=== PATIENT | female | born 1955 | race Caucasian/White ===

== ENCOUNTER 2022-06-15 19:21 | Inpatient (IN) | payer MEDICAID ==
[~2022-06-15] VITALS: Ht 154.9 cm; Wt 86.7 kg
[2022-06-15] MEDS ORDERED: METRONIDAZOLE 500 MG PREMIX 100 ML IV ONE (19:45)
[2022-06-15] MEDS ORDERED: CEFTRIAXONE 1 G PREMIX 50 ML IV ONE (19:45)
[2022-06-15] MEDS ORDERED: SODIUM CHLORIDE 0.9% 1000ML BAG (SEPSIS BOLUS) IV ONE (19:45)
[2022-06-15] MEDS ORDERED: IOHEXOL-350 100 ML BOTTLE ONE (20:10)
[2022-06-15 20:55] LABS: HEMATOCRIT. 46.9 % (36.0-48.0); HEMOGLOBIN. 15.5 g/dL (12.0-16.0); MEAN CORPUSCULAR HEMOGLOBIN 29.9 pg (28.0-32.0); MEAN CORPUSCULAR VOLUME 90.7 fL (81.0-99.0); MEAN PLATELET VOLUME 8.3 fl (7.4-10.4); PLATELET 267 x1000/uL (130-400); RED BLOOD CELL COUNT 5.17 mill/uL (4.2-5.4); RED CELL DISTRIBUTION WIDTH 13.8 % (11.6-14.6)
[2022-06-15 21:08] LABS: CHLORIDE 97 mEq/L (98-107)
[2022-06-15 21:29] LABS: PLATELET ESTIMATE NORMAL
[2022-06-15] MEDS ORDERED: ACETAMINOPHEN 650MG SUPP PR ONE (21:30)
[2022-06-15] MEDS ORDERED: MAGNESIUM 1 G PREMIX 100 ML IV ONE (22:15)
[2022-06-15] MEDS ORDERED: PIPERACILLIN/TAZ 3.375G PREMIX 50 ML IV ONE (22:15)
[2022-06-15] MEDS ORDERED: POTASSIUM CHLORIDE INJ 40 MEQ in DEXT 5% WATER 250 ML IV ONE ×4 (22:15)
[2022-06-15] MEDS ORDERED: KCL 20MEQ/100ML X 2 FOR TOTAL KCL 40MEQ/200ML IV SCH (22:30)
[2022-06-15 23:10] LABS: BG BASE EXCESS -5.9 mmol/L (-2.0-2.0); BG CARBOXYHEMOGLOBIN 0.5 % (0.5-1.5); BG DEOXYHEMOGLOBIN 2.2 % (0.0-5.0); BG FRACTION INSPIRED OXYGEN 80; BG HCO3 ACT 18.6 mmol/L (22.0-26.0); BG METHEMOGLOBIN 0.5 % (0.0-1.5); BG OXYGEN SATURATION 97.8 % (92.0-98.5); BG OXYHEMOGLOBIN 96.8 % (94.0-97.0); BG PCO2 33.6 mmHg (35.0-45.0); BG PO2 102.9 mmHg (75.0-100.0); BG TOTAL HEMOGLOBIN 14.7 g/dL (12.0-18.0); BG VENT MODE MASK - BIPAP
[2022-06-16] VITALS (22 sets, daily range): BP systolic 65–116; BP diastolic 29–73
[2022-06-16] MEDS ORDERED: KCL 20MEQ/100ML X 2 FOR TOTAL KCL 40MEQ/200ML IV SCH (03:00)
[2022-06-16] MEDS ORDERED: CAND1TAB14 MT (03:32)
[2022-06-16] MEDS ORDERED: MORPHINE SULFATE 2 MG/ML CPJ (NOT FOR IM USE) IV PRN (04:00)
[2022-06-16] MEDS ORDERED: ONDANSETRON HCL 4MG/2ML INJ IV PRN (04:00)
[2022-06-16] MEDS: DEXT 5%/0.45% NACL KCL 40MEQ/L 1,000 ML IV SCH ×2 (05:05→14:22)
[2022-06-16] MEDS: PIPERACILLIN/TAZOBACTAM 3.375 G in DEXTROSE 5% WATER 50 ML IV SCH ×3 (05:05→21:51)
[2022-06-16] MEDS ORDERED: IOHEXOL-350 100 ML BOTTLE ONE (05:39)
[2022-06-16] MEDS ORDERED: CLONIDINE 0.1MG TABLET PO PRN (07:30)
[2022-06-16] MEDS ORDERED: MAGNESIUM/ALUMINUM HYDROXIDE/SIMETHICONE 30ML UDC PO PRN (07:30)
[2022-06-16] MEDS ORDERED: DEXTROSE 50% WATER 50ML SYRINGE IV PRN ×2 (07:30)
[2022-06-16] MEDS ORDERED: PIPERACILLIN/TAZOBACTAM 3.375 G in DEXTROSE 5% WATER 50 ML IV SCH (07:30)
[2022-06-16] MEDS: INSULIN LISPRO 100 UNITS/ML SUBCUT SCH ×4 (08:03→21:00)
[2022-06-16] MEDS: BLOOD SUGAR DIAGNOSTIC STRIP TEST SCH ×4 (08:04→21:00)
[2022-06-16] MEDS ORDERED: NALOXONE HCL 0.4MG/ML VIAL IV PRN (08:15)
[2022-06-16 08:21] LABS: BG BASE EXCESS -10.8 mmol/L (-2.0-2.0); BG CARBOXYHEMOGLOBIN 0.3 % (0.5-1.5); BG DEOXYHEMOGLOBIN 3.2 % (0.0-5.0); BG HCO3 ACT 12.3 mmol/L (22.0-26.0); BG METHEMOGLOBIN 0.1 % (0.0-1.5); BG OXYGEN SATURATION 96.8 % (92.0-98.5); BG OXYHEMOGLOBIN 96.4 % (94.0-97.0); BG PCO2 22.5 mmHg (35.0-45.0); BG PH 7.356 (7.350-7.450); BG PO2 90.4 mmHg (75.0-100.0); BG SAMPLE SITE LEFT RADIAL; BG TOTAL HEMOGLOBIN 15.7 g/dL (12.0-18.0); BG VENT MODE MASK - BIPAP
[2022-06-16] MEDS ORDERED: ENOXAPARIN 40MG/0.4ML SYR SUBCUT SCH (09:00)
[2022-06-16] MEDS ORDERED: SODIUM BICARBONATE 8.4% 1 MEQ/ML 50ML SYR IV NR (09:30)
[2022-06-16] MEDS ORDERED: SODIUM CHL 0.9% + KCL 20MEQ/L 1,000 ML IV SCH (09:30)
[2022-06-16] MEDS ORDERED: KCL 20MEQ/100ML PREMIX 100 ML IV SCH (09:45)
[2022-06-16 09:52] LABS: CHLORIDE 109 mEq/L (98-107)
[2022-06-16 09:57] LABS: HEMATOCRIT. 44.7 % (36.0-48.0); HEMOGLOBIN. 14.9 g/dL (12.0-16.0); MEAN CORPUSCULAR HEMOGLOBIN 30.2 pg (28.0-32.0); MEAN CORPUSCULAR VOLUME 90.9 fL (81.0-99.0); MEAN PLATELET VOLUME 8.8 fl (7.4-10.4); PLATELET 176 x1000/uL (130-400); RED BLOOD CELL COUNT 4.92 mill/uL (4.2-5.4); RED CELL DISTRIBUTION WIDTH 14.3 % (11.6-14.6)
[2022-06-16] MEDS ORDERED: VANCOMYCIN 1500MG in DEXTROSE 5% WATER 250ML IV NR (10:00)
[2022-06-16] MEDS ORDERED: SODIUM BICARBONATE 100 MEQ in SODIUM CHLORIDE 0.45% 1,000 ML IV SCH ×2 (10:30→21:00)
[2022-06-16 12:19] LABS: PLATELET ESTIMATE NORMAL
[2022-06-16] MEDS ORDERED: IPRATROPIUM/ALBUTEROL 0.5-3(2.5)MG/3ML NEB HHN PRN (13:15)
[2022-06-16] MEDS ORDERED: LIDOCAINE HCL/PF 1% 2ML VIAL ONE (13:30)
[2022-06-16 13:38] LABS: BG BASE EXCESS -7.8 mmol/L (-2.0-2.0); BG CARBOXYHEMOGLOBIN 0.2 % (0.5-1.5); BG DEOXYHEMOGLOBIN 8.2 % (0.0-5.0); BG HCO3 ACT 17.5 mmol/L (22.0-26.0); BG METHEMOGLOBIN 0.3 % (0.0-1.5); BG OXYGEN SATURATION 91.8 % (92.0-98.5); BG OXYHEMOGLOBIN 91.3 % (94.0-97.0); BG PCO2 35.6 mmHg (35.0-45.0); BG PO2 64.8 mmHg (75.0-100.0); BG SAMPLE SITE RIGHT RADIAL; BG TOTAL HEMOGLOBIN 15.5 g/dL (12.0-18.0); BG VENT MODE MASK - SIMPLE
[2022-06-16] MEDS ORDERED: LORAZEPAM 0.5MG TABLET PO PRN ×2 (13:45→15:30)
[2022-06-16] MEDS: MIDODRINE HCL 5MG TABLET PO SCH ×2 (14:22→16:21)
[2022-06-16] MEDS ORDERED: NOREPINEPHRINE 32 MG in DEXT 5% WATER 218 ML IV PRN (16:30)
[2022-06-16 16:52] LABS: AMYLASE 1498 IU/L (25-115)
[2022-06-16] MEDS: IPRATROPIUM/ALBUTEROL 0.5-3(2.5)MG/3ML NEB HHN SCH (20:20)
[2022-06-16] MEDS ORDERED: SODIUM CHLORIDE IV SCH ×3 (21:15)
[2022-06-16] MEDS ORDERED: SODIUM BICARBONATE IV SCH ×4 (21:15→22:00)
[2022-06-16] MEDS ORDERED: DEXTROSE 5% IV SCH ×3 (21:15)
[2022-06-16] MEDS ORDERED: WATER IV SCH ×3 (21:15)
[2022-06-16] MEDS ORDERED: POTASSIUM CHLORIDE IV SCH (22:00)
[2022-06-16] MEDS ORDERED: [UNRECOGNIZED DRUG - OTHER] IV SCH (22:00)
[2022-06-17] VITALS (70 sets, daily range): BP systolic 70–171; BP diastolic 46–104
[2022-06-17] MEDS: IPRATROPIUM/ALBUTEROL 0.5-3(2.5)MG/3ML NEB HHN SCH ×4 (00:53→21:10)
[2022-06-17] MEDS: PIPERACILLIN/TAZOBACTAM 3.375 G in DEXTROSE 5% WATER 50 ML IV SCH ×3 (05:31→22:03)
[2022-06-17 06:39] LABS: HEMATOCRIT. 41.5 % (36.0-48.0); HEMOGLOBIN. 13.7 g/dL (12.0-16.0); MEAN CORPUSCULAR HEMOGLOBIN 29.8 pg (28.0-32.0); MEAN CORPUSCULAR VOLUME 90.4 fL (81.0-99.0); PLATELET 153 x1000/uL (130-400); RED BLOOD CELL COUNT 4.59 mill/uL (4.2-5.4); RED CELL DISTRIBUTION WIDTH 14.8 % (11.6-14.6)
[2022-06-17] MEDS: BLOOD SUGAR DIAGNOSTIC STRIP TEST SCH ×4 (07:06→21:00)
[2022-06-17] MEDS: INSULIN LISPRO 100 UNITS/ML SUBCUT SCH ×5 (07:20→22:18)
[2022-06-17 07:22] LABS: PHOSPHORUS 4.3 mg/dL (2.5-4.9); T4 FREE 1.03 ng/dL (0.76-1.46)
[2022-06-17] MEDS: HYDROCODONE/ACETAMINOPHEN 5/325MG TABLET PO PRN (08:01)
[2022-06-17] MEDS ORDERED: DILTIAZEM HCL 5MG/ML 5ML VIAL IV PRN (08:15)
[2022-06-17] MEDS ORDERED: LIDOCAINE HCL/PF 1% 10 MG/ML 5ML VIAL ONE (08:28)
[2022-06-17] MEDS: MIDODRINE HCL 5MG TABLET PO SCH ×3 (08:38→17:20)
[2022-06-17 09:16] LABS: BG BASE EXCESS -4.2 mmol/L (-2.0-2.0); BG CARBOXYHEMOGLOBIN 0.5 % (0.5-1.5); BG DEOXYHEMOGLOBIN 6.2 % (0.0-5.0); BG FRACTION INSPIRED OXYGEN 60; BG HCO3 ACT 19.3 mmol/L (22.0-26.0); BG METHEMOGLOBIN 0.4 % (0.0-1.5); BG OXYGEN SATURATION 93.7 % (92.0-98.5); BG OXYHEMOGLOBIN 92.9 % (94.0-97.0); BG PCO2 31.1 mmHg (35.0-45.0); BG PO2 66.1 mmHg (75.0-100.0); BG SAMPLE SITE RIGHT BRACHIAL; BG TOTAL HEMOGLOBIN 14.3 g/dL (12.0-18.0); BG VENT MODE MASK - SIMPLE
[2022-06-17] MEDS: ENOXAPARIN 30MG/0.3ML SYR SUBCUT SCH (09:40)
[2022-06-17] MEDS ORDERED: FUROSEMIDE 100MG/10ML VIAL IVP NR (11:30)
[2022-06-17] MEDS ORDERED: VANCOMYCIN 750MG PREMIX 150 ML IV SCH ×2 (12:00)
[2022-06-17] MEDS ORDERED: AMIODARONE HCL 150 MG in DEXT 5% WATER 97 ML IV SCH (13:00)
[2022-06-17] MEDS: AMIODARONE HCL 900 MG in DEXT 5% WATER 482 ML IV PRN (13:30)
[2022-06-17] MEDS: SODIUM BICARBONATE 150 MEQ in DEXTROSE 5% WATER 1,000 ML IV SCH (13:37)
[2022-06-17] MEDS ORDERED: VANCOMYCIN 500MG PREMIX 100 ML IV NR (21:00)
[2022-06-17 21:26] LABS: PLATELET ESTIMATE NORMAL
[2022-06-18] VITALS (80 sets, daily range): BP systolic 97–173; BP diastolic 44–124
[2022-06-18] MEDS: IPRATROPIUM/ALBUTEROL 0.5-3(2.5)MG/3ML NEB HHN SCH ×4 (01:00→20:29)
[2022-06-18 05:34] LABS: HEMATOCRIT. 37.8 % (36.0-48.0); HEMOGLOBIN. 12.7 g/dL (12.0-16.0); MEAN CORPUSCULAR HEMOGLOBIN 29.9 pg (28.0-32.0); MEAN CORPUSCULAR VOLUME 89.1 fL (81.0-99.0); MEAN PLATELET VOLUME 9.1 fl (7.4-10.4); PLATELET 133 x1000/uL (130-400); RED BLOOD CELL COUNT 4.24 mill/uL (4.2-5.4); RED CELL DISTRIBUTION WIDTH 14.7 % (11.6-14.6)
[2022-06-18] MEDS: PIPERACILLIN/TAZOBACTAM 3.375 G in DEXTROSE 5% WATER 50 ML IV SCH ×2 (06:40→21:11)
[2022-06-18] MEDS: INSULIN LISPRO 100 UNITS/ML SUBCUT SCH ×3 (06:43→18:00)
[2022-06-18] MEDS: BLOOD SUGAR DIAGNOSTIC STRIP TEST SCH ×3 (06:44→17:59)
[2022-06-18] MEDS: ENOXAPARIN 30MG/0.3ML SYR SUBCUT SCH (08:41)
[2022-06-18 09:14] LABS: PLATELET ESTIMATE NORMAL
[2022-06-18] MEDS: MIDODRINE HCL 5MG TABLET PO SCH (10:04)
[2022-06-18] MEDS: KCL 10MEQ/50ML PREMIX 50 ML IV SCH ×3 (10:04→12:41)
[2022-06-18] MEDS: AMIODARONE HCL 900 MG in DEXT 5% WATER 482 ML IV PRN (13:18)
[2022-06-18] MEDS ORDERED: DILTIAZEM HCL 125 MG in DEXT 5% WATER 100 ML IV PRN (13:30)
[2022-06-18] MEDS: SODIUM BICARBONATE 150 MEQ in DEXTROSE 5% WATER 1,000 ML IV SCH (21:10)
[2022-06-18] MEDS: HYDROCODONE/ACETAMINOPHEN 5/325MG TABLET PO PRN (22:24)
[2022-06-18] MEDS ORDERED: BLOOD SUGAR DIAGNOSTIC STRIP TEST SCH (22:45)
[2022-06-18] MEDS ORDERED: INSULIN LISPRO 100 UNITS/ML SUBCUT SCH (22:45)
[2022-06-19] VITALS (36 sets, daily range): BP systolic 131–185; BP diastolic 55–114
[2022-06-19] MEDS: IPRATROPIUM/ALBUTEROL 0.5-3(2.5)MG/3ML NEB HHN SCH ×4 (02:14→21:10)
[2022-06-19 06:03] LABS: PROTHROMBIN TIME 10.9 sec (9.6-11.0)
[2022-06-19 06:24] LABS: PHOSPHORUS 3.1 mg/dL (2.5-4.9)
[2022-06-19] MEDS: BLOOD SUGAR DIAGNOSTIC STRIP TEST SCH ×4 (07:50→21:29)
[2022-06-19 08:36] LABS: BG BASE EXCESS 5.4 mmol/L (-2.0-2.0); BG CARBOXYHEMOGLOBIN 0.3 % (0.5-1.5); BG DEOXYHEMOGLOBIN 6.5 % (0.0-5.0); BG FRACTION INSPIRED OXYGEN 44; BG HCO3 ACT 28.8 mmol/L (22.0-26.0); BG METHEMOGLOBIN 0.4 % (0.0-1.5); BG OXYGEN SATURATION 93.5 % (92.0-98.5); BG OXYHEMOGLOBIN 92.8 % (94.0-97.0); BG PCO2 38.1 mmHg (35.0-45.0); BG PH 7.497 (7.350-7.450); BG PO2 63.7 mmHg (75.0-100.0); BG SAMPLE SITE LEFT RADIAL; BG TOTAL HEMOGLOBIN 12.2 g/dL (12.0-18.0); BG VENT MODE NASAL CANNULA
[2022-06-19] MEDS ORDERED: POTASSIUM CHLORIDE INJ 60 MEQ in DEXT 5% WATER 250 ML IV ONE (08:45)
[2022-06-19] MEDS: PIPERACILLIN/TAZOBACTAM 3.375 G in DEXTROSE 5% WATER 50 ML IV SCH ×2 (09:00→22:32)
[2022-06-19] MEDS: KCL 20MEQ/100ML PREMIX 100 ML IV NR ×3 (09:58→13:00)
[2022-06-19] MEDS: ENOXAPARIN 30MG/0.3ML SYR SUBCUT SCH (09:58)
[2022-06-19] MEDS: INSULIN LISPRO 100 UNITS/ML SUBCUT SCH ×4 (09:59→21:24)
[2022-06-19 11:03] LABS: HEMATOCRIT. 35.3 % (36.0-48.0); HEMOGLOBIN. 11.8 g/dL (12.0-16.0); MEAN CORPUSCULAR HEMOGLOBIN 29.7 pg (28.0-32.0); MEAN CORPUSCULAR VOLUME 88.9 fL (81.0-99.0); MEAN PLATELET VOLUME 10.4 fl (7.4-10.4); PLATELET 147 x1000/uL (130-400); RED BLOOD CELL COUNT 3.97 mill/uL (4.2-5.4); RED CELL DISTRIBUTION WIDTH 14.9 % (11.6-14.6)
[2022-06-19] MEDS ORDERED: DILTIAZEM HCL 30MG TABLET PO SCH (12:00)
[2022-06-19 12:13] LABS: PLATELET ESTIMATE NORMAL
[2022-06-19] MEDS: DILTIAZEM HCL 60MG TABLET PO SCH ×2 (14:00→21:23)
[2022-06-19] MEDS ORDERED: DILTIAZEM HCL 60MG TABLET PO SCH (18:00)
[2022-06-19] MEDS: CARVEDILOL 3.125 MG TABLET PO SCH (21:23)
[2022-06-19] MEDS: AMIODARONE HCL 200 MG TABLET PO SCH (21:24)
[2022-06-20] VITALS (12 sets, daily range): BP systolic 97–160; BP diastolic 54–80
[2022-06-20] MEDS: IPRATROPIUM/ALBUTEROL 0.5-3(2.5)MG/3ML NEB HHN SCH ×4 (01:06→21:12)
[2022-06-20] MEDS: DILTIAZEM HCL 60MG TABLET PO SCH ×3 (05:43→21:03)
[2022-06-20 06:44] LABS: HEMATOCRIT. 36.7 % (36.0-48.0); HEMOGLOBIN. 12.1 g/dL (12.0-16.0); MEAN CORPUSCULAR VOLUME 90.9 fL (81.0-99.0); MEAN PLATELET VOLUME 9.8 fl (7.4-10.4); PLATELET 181 x1000/uL (130-400); RED BLOOD CELL COUNT 4.04 mill/uL (4.2-5.4)
[2022-06-20 06:50] LABS: PHOSPHORUS 3.3 mg/dL (2.5-4.9)
[2022-06-20] MEDS: INSULIN LISPRO 100 UNITS/ML SUBCUT SCH ×5 (08:00→20:56)
[2022-06-20] MEDS: BLOOD SUGAR DIAGNOSTIC STRIP TEST SCH ×4 (08:17→20:21)
[2022-06-20] MEDS ORDERED: POTASSIUM CHLORIDE 20MEQ TABLET SR PO SCH (09:00)
[2022-06-20] MEDS ORDERED: VANCOMYCIN 750MG PREMIX 150 ML IV NR (10:00)
[2022-06-20] MEDS: AMIODARONE HCL 200 MG TABLET PO SCH ×2 (10:35→20:53)
[2022-06-20] MEDS: ENOXAPARIN 30MG/0.3ML SYR SUBCUT SCH (10:36)
[2022-06-20] MEDS: CARVEDILOL 3.125 MG TABLET PO SCH ×2 (10:37→21:00)
[2022-06-20] MEDS: PIPERACILLIN/TAZOBACTAM 3.375 G in DEXTROSE 5% WATER 50 ML IV SCH ×2 (10:37→20:53)
[2022-06-20 12:26] LABS: CLARITY URINE TURBID (CLEAR); COLOR URINE ORANGE (YELLOW); KETONES URINE NEGATIVE (NEGATIVE); LEUKOCYTE ESTERASE URINE 1+ (NEGATIVE); NITRITE URINE NEGATIVE (NEGATIVE); OCCULT BLOOD URINE 3+ (NEGATIVE); PROTEIN URINE 2+ (NEGATIVE); SPECIFIC GRAVITY URINE 1.019 (1.005-1.030); UROBILINOGEN URINE 0.2 E.U./dL (0.2-1.0)
[2022-06-20] MEDS ORDERED: LIDOCAINE HCL/PF 1% 2ML VIAL ONE (13:11)
[2022-06-20 14:18] LABS: BG BASE EXCESS 3.6 mmol/L (-2.0-2.0); BG CARBOXYHEMOGLOBIN 0.3 % (0.5-1.5); BG DEOXYHEMOGLOBIN 11.6 % (0.0-5.0); BG HCO3 ACT 26.8 mmol/L (22.0-26.0); BG METHEMOGLOBIN 0.3 % (0.0-1.5); BG OXYGEN SATURATION 88.3 % (92.0-98.5); BG OXYHEMOGLOBIN 87.8 % (94.0-97.0); BG PCO2 35.9 mmHg (35.0-45.0); BG PH 7.491 (7.350-7.450); BG PO2 51.4 mmHg (75.0-100.0); BG SAMPLE SITE RIGHT RADIAL; BG TOTAL HEMOGLOBIN 12.8 g/dL (12.0-18.0); BG VENT MODE NASAL CANNULA
[2022-06-20 21:36] LABS: PLATELET ESTIMATE NORMAL
[2022-06-21] VITALS (12 sets, daily range): BP systolic 98–125; BP diastolic 41–106
[2022-06-21] MEDS: IPRATROPIUM/ALBUTEROL 0.5-3(2.5)MG/3ML NEB HHN SCH ×4 (01:04→20:27)
[2022-06-21] MEDS: DILTIAZEM HCL 60MG TABLET PO SCH ×3 (06:00→21:10)
[2022-06-21 06:21] LABS: HEMATOCRIT. 36.5 % (36.0-48.0); HEMOGLOBIN. 12.4 g/dL (12.0-16.0); MEAN CORPUSCULAR HEMOGLOBIN 30.6 pg (28.0-32.0); MEAN PLATELET VOLUME 9.7 fl (7.4-10.4); PLATELET 263 x1000/uL (130-400); RED BLOOD CELL COUNT 4.05 mill/uL (4.2-5.4); RED CELL DISTRIBUTION WIDTH 14.4 % (11.6-14.6)
[2022-06-21 06:54] LABS: PHOSPHORUS 3.7 mg/dL (2.5-4.9)
[2022-06-21] MEDS: INSULIN LISPRO 100 UNITS/ML SUBCUT SCH ×4 (08:00→21:00)
[2022-06-21] MEDS: BLOOD SUGAR DIAGNOSTIC STRIP TEST SCH ×4 (08:14→21:11)
[2022-06-21] MEDS: CARVEDILOL 3.125 MG TABLET PO SCH ×2 (08:15→21:11)
[2022-06-21] MEDS: PIPERACILLIN/TAZOBACTAM 3.375 G in DEXTROSE 5% WATER 50 ML IV SCH ×3 (08:55→21:10)
[2022-06-21] MEDS: ENOXAPARIN 30MG/0.3ML SYR SUBCUT SCH (08:55)
[2022-06-21] MEDS: AMIODARONE HCL 200 MG TABLET PO SCH ×2 (08:55→21:11)
[2022-06-21 20:37] LABS: PLATELET ESTIMATE NORMAL
[2022-06-22] VITALS (12 sets, daily range): BP systolic 91–111; BP diastolic 54–68
[2022-06-22] MEDS: IPRATROPIUM/ALBUTEROL 0.5-3(2.5)MG/3ML NEB HHN SCH ×4 (01:07→20:17)
[2022-06-22] MEDS: ENOXAPARIN 30MG/0.3ML SYR SUBCUT SCH (09:00)
[2022-06-22] MEDS: PIPERACILLIN/TAZOBACTAM 3.375 G in DEXTROSE 5% WATER 50 ML IV SCH ×2 (09:00→20:08)
[2022-06-22] MEDS: AMIODARONE HCL 200 MG TABLET PO SCH ×2 (09:00→20:08)
[2022-06-22] MEDS: CARVEDILOL 3.125 MG TABLET PO SCH ×2 (09:00→20:08)
[2022-06-22 12:09] LABS: HEMATOCRIT. 37.9 % (36.0-48.0); HEMOGLOBIN. 12.8 g/dL (12.0-16.0); MEAN CORPUSCULAR HEMOGLOBIN 30.2 pg (28.0-32.0); MEAN CORPUSCULAR VOLUME 89.4 fL (81.0-99.0); MEAN PLATELET VOLUME 9.8 fl (7.4-10.4); PLATELET 347 x1000/uL (130-400); RED BLOOD CELL COUNT 4.24 mill/uL (4.2-5.4); RED CELL DISTRIBUTION WIDTH 14.5 % (11.6-14.6)
[2022-06-22] MEDS: BLOOD SUGAR DIAGNOSTIC STRIP TEST SCH ×3 (12:33→20:08)
[2022-06-22] MEDS: INSULIN LISPRO 100 UNITS/ML SUBCUT SCH ×3 (13:00→20:09)
[2022-06-22] MEDS: DILTIAZEM HCL 60MG TABLET PO SCH ×2 (14:00→20:09)
[2022-06-22 17:41] LABS: PLATELET ESTIMATE NORMAL
[2022-06-22 19:29] LABS: CREATINE KINASE 101 IU/L (26-192)
[2022-06-23] VITALS (18 sets, daily range): BP systolic 83–113; BP diastolic 51–66
[2022-06-23] MEDS: IPRATROPIUM/ALBUTEROL 0.5-3(2.5)MG/3ML NEB HHN SCH ×4 (01:50→20:19)
[2022-06-23] MEDS: DILTIAZEM HCL 60MG TABLET PO SCH ×3 (05:21→21:57)
[2022-06-23 06:12] LABS: HEMATOCRIT. 35.3 % (36.0-48.0); MEAN CORPUSCULAR HEMOGLOBIN 30.1 pg (28.0-32.0); PLATELET 377 x1000/uL (130-400); RED BLOOD CELL COUNT 3.97 mill/uL (4.2-5.4); RED CELL DISTRIBUTION WIDTH 14.6 % (11.6-14.6)
[2022-06-23] MEDS: INSULIN LISPRO 100 UNITS/ML SUBCUT SCH ×4 (08:00→21:00)
[2022-06-23] MEDS: BLOOD SUGAR DIAGNOSTIC STRIP TEST SCH ×4 (08:00→21:38)
[2022-06-23] MEDS ORDERED: POTASSIUM CHLORIDE 20MEQ/PACKET PO NR (08:15)
[2022-06-23] MEDS ORDERED: SODIUM CHLORIDE 0.9% 1000ML BAG (SEPSIS BOLUS) IV ONE (08:15)
[2022-06-23] MEDS: CARVEDILOL 3.125 MG TABLET PO SCH (08:25)
[2022-06-23] MEDS: PIPERACILLIN/TAZOBACTAM 3.375 G in DEXTROSE 5% WATER 50 ML IV SCH ×2 (08:33→21:38)
[2022-06-23] MEDS: ENOXAPARIN 30MG/0.3ML SYR SUBCUT SCH (08:33)
[2022-06-23] MEDS: AMIODARONE HCL 200 MG TABLET PO SCH ×2 (08:33→21:38)
[2022-06-23] MEDS ORDERED: LIDOCAINE HCL/PF 1% 2ML VIAL ONE (09:04)
[2022-06-23 10:20] LABS: BG BASE EXCESS 0.7 mmol/L (-2.0-2.0); BG CARBOXYHEMOGLOBIN 0.2 % (0.5-1.5); BG DEOXYHEMOGLOBIN 9.1 % (0.0-5.0); BG FRACTION INSPIRED OXYGEN 21; BG METHEMOGLOBIN 0.3 % (0.0-1.5); BG OXYGEN SATURATION 90.9 % (92.0-98.5); BG OXYHEMOGLOBIN 90.4 % (94.0-97.0); BG PCO2 30.1 mmHg (35.0-45.0); BG PH 7.501 (7.350-7.450); BG PO2 56.9 mmHg (75.0-100.0); BG SAMPLE SITE RIGHT RADIAL; BG TOTAL HEMOGLOBIN 12.6 g/dL (12.0-18.0); BG VENT MODE ROOM AIR
[2022-06-23] MEDS: MIDODRINE HCL 5MG TABLET PO SCH ×2 (14:17→17:46)
[2022-06-23] MEDS: ACETAMINOPHEN 325MG TABLET PO PRN (21:38)
[2022-06-24] VITALS (12 sets, daily range): BP systolic 90–125; BP diastolic 46–66
[2022-06-24] MEDS: IPRATROPIUM/ALBUTEROL 0.5-3(2.5)MG/3ML NEB HHN SCH ×4 (03:00→21:39)
[2022-06-24] MEDS: DILTIAZEM HCL 60MG TABLET PO SCH (05:08)
[2022-06-24 05:57] LABS: HEMATOCRIT. 32.3 % (36.0-48.0); HEMOGLOBIN. 10.9 g/dL (12.0-16.0); MEAN CORPUSCULAR HEMOGLOBIN 30.1 pg (28.0-32.0); MEAN CORPUSCULAR VOLUME 89.3 fL (81.0-99.0); MEAN PLATELET VOLUME 8.9 fl (7.4-10.4); PLATELET 451 x1000/uL (130-400); RED BLOOD CELL COUNT 3.62 mill/uL (4.2-5.4); RED CELL DISTRIBUTION WIDTH 14.7 % (11.6-14.6)
[2022-06-24] MEDS: OMEPRAZOLE 20MG CAPSULE EXTENDED RELEASE PO SCH (07:40)
[2022-06-24] MEDS: BLOOD SUGAR DIAGNOSTIC STRIP TEST SCH ×4 (07:40→20:53)
[2022-06-24] MEDS: INSULIN LISPRO 100 UNITS/ML SUBCUT SCH ×4 (07:41→20:55)
[2022-06-24] MEDS ORDERED: POTASSIUM CHLORIDE 20MEQ TABLET SR PO NR (08:30)
[2022-06-24] MEDS: PIPERACILLIN/TAZOBACTAM 3.375 G in DEXTROSE 5% WATER 50 ML IV SCH ×2 (09:05→20:53)
[2022-06-24] MEDS: AMIODARONE HCL 200 MG TABLET PO SCH ×2 (09:06→20:53)
[2022-06-24] MEDS: ENOXAPARIN 40MG/0.4ML SYR SUBCUT SCH (09:06)
[2022-06-24] MEDS: MIDODRINE HCL 5MG TABLET PO SCH ×3 (09:06→16:47)
[2022-06-24 12:39] LABS: PLATELET ESTIMATE INCREASED
[2022-06-24] MEDS: DILTIAZEM HCL 30MG TABLET PO SCH ×2 (13:50→21:17)
[2022-06-24 14:18] LABS: PLATELET ESTIMATE NORMAL
[2022-06-24] MEDS: ACETAMINOPHEN 325MG TABLET PO PRN (16:46)
[2022-06-25] VITALS (12 sets, daily range): BP systolic 94–123; BP diastolic 52–70
[2022-06-25] MEDS: IPRATROPIUM/ALBUTEROL 0.5-3(2.5)MG/3ML NEB HHN SCH ×4 (02:27→21:18)
[2022-06-25] MEDS: DILTIAZEM HCL 30MG TABLET PO SCH ×3 (05:20→22:00)
[2022-06-25 06:06] LABS: HEMATOCRIT. 36.1 % (36.0-48.0); HEMOGLOBIN. 12.1 g/dL (12.0-16.0); MEAN CORPUSCULAR HEMOGLOBIN 30.6 pg (28.0-32.0); MEAN CORPUSCULAR VOLUME 91.8 fL (81.0-99.0); MEAN PLATELET VOLUME 8.8 fl (7.4-10.4); PLATELET 496 x1000/uL (130-400); RED BLOOD CELL COUNT 3.94 mill/uL (4.2-5.4); RED CELL DISTRIBUTION WIDTH 14.7 % (11.6-14.6)
[2022-06-25] MEDS: BLOOD SUGAR DIAGNOSTIC STRIP TEST SCH ×4 (07:30→21:00)
[2022-06-25] MEDS: INSULIN LISPRO 100 UNITS/ML SUBCUT SCH ×4 (08:00→21:00)
[2022-06-25] MEDS: OMEPRAZOLE 20MG CAPSULE EXTENDED RELEASE PO SCH (09:19)
[2022-06-25] MEDS: PIPERACILLIN/TAZOBACTAM 3.375 G in DEXTROSE 5% WATER 50 ML IV SCH ×2 (09:19→20:42)
[2022-06-25] MEDS: AMIODARONE HCL 200 MG TABLET PO SCH ×2 (09:19→20:42)
[2022-06-25] MEDS: MIDODRINE HCL 5MG TABLET PO SCH ×3 (09:19→17:48)
[2022-06-25] MEDS: ENOXAPARIN 40MG/0.4ML SYR SUBCUT SCH (09:20)
[2022-06-25] MEDS: ACETAMINOPHEN 325MG TABLET PO PRN ×2 (11:14→20:44)
[2022-06-26] VITALS (12 sets, daily range): BP systolic 91–129; BP diastolic 46–78
[2022-06-26] MEDS: IPRATROPIUM/ALBUTEROL 0.5-3(2.5)MG/3ML NEB HHN SCH ×3 (02:16→14:00)
[2022-06-26] MEDS: DILTIAZEM HCL 30MG TABLET PO SCH (06:00)
[2022-06-26 07:22] LABS: HEMATOCRIT. 32.3 % (36.0-48.0); HEMOGLOBIN. 10.7 g/dL (12.0-16.0); MEAN CORPUSCULAR HEMOGLOBIN 30.2 pg (28.0-32.0); MEAN CORPUSCULAR VOLUME 90.9 fL (81.0-99.0); MEAN PLATELET VOLUME 8.6 fl (7.4-10.4); PLATELET 554 x1000/uL (130-400); RED BLOOD CELL COUNT 3.55 mill/uL (4.2-5.4); RED CELL DISTRIBUTION WIDTH 14.7 % (11.6-14.6)
[2022-06-26] MEDS: INSULIN LISPRO 100 UNITS/ML SUBCUT SCH ×3 (08:00→16:41)
[2022-06-26] MEDS: BLOOD SUGAR DIAGNOSTIC STRIP TEST SCH ×3 (08:08→16:40)
[2022-06-26] MEDS: AMIODARONE HCL 200 MG TABLET PO SCH (08:27)
[2022-06-26] MEDS: MIDODRINE HCL 5MG TABLET PO SCH ×3 (08:27→16:47)
[2022-06-26] MEDS: OMEPRAZOLE 20MG CAPSULE EXTENDED RELEASE PO SCH (08:27)
[2022-06-26] MEDS: PIPERACILLIN/TAZOBACTAM 3.375 G in DEXTROSE 5% WATER 50 ML IV SCH (08:27)
[2022-06-26] MEDS: ENOXAPARIN 40MG/0.4ML SYR SUBCUT SCH (08:28)
[2022-06-26 14:04] LABS: PLATELET ESTIMATE INCREASED
[2022-06-26] MEDS: ACETAMINOPHEN 325MG TABLET PO PRN (14:40)
[2022-06-26] MEDS ORDERED: LINE600T14 MT (15:06)
[2022-06-26] MEDS ORDERED: AMI2 PO (15:06)
[2022-06-27 14:42] LABS: PLATELET ESTIMATE INCREASED
== END 2022-06-26 18:30 | disposition home or self-care (01) | DRG 720 ==
LOC: ER 19:21 → 5EST 23:22 → EDBEDREQ 23:31 → EDBEDREQTM 23:31 → ENRESERV 06-16 00:08 → CVICU 06-16 16:00 → 5EST 06-19 18:40
PROVIDERS: ADMIT Internal Medicine; ATTEND Internal Medicine
PROC: 5A09357 Assistance with Respiratory Ventilation, Less than 24 Consecutive Hours, Continuous Positive Airway Pressure (ICD-10-PCS; 2022-06-15)
PROC: 05HM33Z Insertion of Infusion Device into Right Internal Jugular Vein, Percutaneous Approach (ICD-10-PCS; principal; 2022-06-17)
PROC: B543ZZA Ultrasonography of Right Jugular Veins, Guidance (ICD-10-PCS; 2022-06-17)
PROC: 5A09357 Assistance with Respiratory Ventilation, Less than 24 Consecutive Hours, Continuous Positive Airway Pressure (ICD-10-PCS; 2022-06-17)
DX: A41.81 Sepsis due to Enterococcus (principal); J96.01 Acute respiratory failure with hypoxia; R65.21 Severe sepsis with septic shock; I21.4 Non-ST elevation (NSTEMI) myocardial infarction; G92.8 Other toxic encephalopathy; E44.1 Mild protein-calorie malnutrition; K85.10 Biliary acute pancreatitis without necrosis or infection; J18.9 Pneumonia, unspecified organism; K80.00 Calculus of gallbladder with acute cholecystitis without obstruction; E87.6 Hypokalemia; I42.9 Cardiomyopathy, unspecified; K82.8 Other specified diseases of gallbladder; D68.59 Other primary thrombophilia; E11.22 Type 2 diabetes mellitus with diabetic chronic kidney disease; I50.20 Unspecified systolic (congestive) heart failure; I48.91 Unspecified atrial fibrillation; E80.6 Other disorders of bilirubin metabolism; N18.30 Chronic kidney disease, stage 3 unspecified; I13.0 Hypertensive heart and chronic kidney disease with heart failure and stage 1 through stage 4 chronic kidney disease, or unspecified chronic kidney disease; R74.01 Elevation of levels of liver transaminase levels; M48.54XA Collapsed vertebra, not elsewhere classified, thoracic region, initial encounter for fracture; I48.92 Unspecified atrial flutter; K76.89 Other specified diseases of liver; N17.9 Acute kidney failure, unspecified; Z86.73 Personal history of transient ischemic attack (TIA), and cerebral infarction without residual deficits; Z79.899 Other long term (current) drug therapy; Z68.36 Body mass index [BMI] 36.0-36.9, adult; E87.2 Acidosis
CPT/HCPCS: 36415; 36573; 36600; 70496; 70498; 71045; 71275; 74174; 74176; 74181; 76604; 76700; 76705; 80048; 80053; 80061; 80076; 80202; 81003; 82140; 82150; 82375; 82550; 82553; 82805; 82962; 83036; 83605; 83735; 83880; 84100; 84145; 84439; 84443; 84484; 85025; 85379; 87077; 87186; 93005; 93306; 93970; 93976; 94618; 94640; 94660; 97116; 97162; 97530; 99285; A6261; C1725; J0282; J0696; J1650; J1815; J1940; J2543; J3370; J3475; J3480; J3490; J7030; J7060; J7070; Q9967

== ENCOUNTER 2023-06-07 13:18 | Emergency (ER) | payer MEDICAID ==
[~2023-06-07] VITALS: Ht 152.4 cm; Wt 76.0 kg
[~2023-06-07 13:18] MED LIST: AMI2 PO; LINE600T14 MT
[2023-06-07 13:39] VITALS: O2SAT 97
[2023-06-07 17:06] VITALS: BP 146/66; PULSE 78; RESP 18; TEMP 98.2
== END 2023-06-07 17:09 | disposition home or self-care (01) ==
LOC: ER 13:18
DX: S42.201G Unspecified fracture of upper end of right humerus, subsequent encounter for fracture with delayed healing (principal); I10 Essential (primary) hypertension; X58.XXXA Exposure to other specified factors, initial encounter; Y93.9 Activity, unspecified; Y92.89 Other specified places as the place of occurrence of the external cause; Y99.8 Other external cause status
CPT/HCPCS: 73030; 99283